=== PATIENT | female | born 1985 | race Two or more races ===

== ENCOUNTER 2023-02-09 10:56 | Emergency (ER) | payer MEDICAID, OTHER ==
[~2023-02-09] VITALS: Ht 172.7 cm; Wt 95.0 kg
[2023-02-09] MEDS ORDERED: HYDROcodone-ACET 5/325MG TAB PO ONE (11:45)
[2023-02-09] MEDS ORDERED: IBUP-1456 PO (12:29)
[2023-02-09] MEDS ORDERED: METH-1182 PO (12:29)
[2023-02-09 12:33] VITALS: BP 122/56; PULSE 89; RESP 18; TEMP 98.2; O2SAT 100
== END 2023-02-09 12:38 | disposition home or self-care (01) ==
LOC: ER 10:56
DX: S86.812A Strain of other muscle(s) and tendon(s) at lower leg level, left leg, initial encounter (principal); Z79.1 Long term (current) use of non-steroidal anti-inflammatories (NSAID); Z79.899 Other long term (current) drug therapy; X58.XXXA Exposure to other specified factors, initial encounter; Y93.E9 Activity, other interior property and clothing maintenance; Y92.89 Other specified places as the place of occurrence of the external cause; Y99.8 Other external cause status
CPT/HCPCS: 93971